=== PATIENT | female | born 1965 | race Caucasian/White ===

== ENCOUNTER 2016-04-12 06:41 | Outpatient (CLI) | payer OTHER ==
[2016-04-12 09:03] LABS: ALT (SGPT) 18 U/L (0-55); AST (SGOT) 19 U/L (5-34); Alkaline Phosphatase 63 U/L (40-150); Anion Gap 15 mmol/L (10-20); BUN (Urea Nitrogen) 15 mg/dL (9.8-20.1); Bilirubin, Total 1.1 mg/dL (0.2-1.2); Calc. Creatinine Clearance 0 mL/min (70-130); Calcium 9.8 mg/dL (7.8-10.44); Carbon Dioxide 28 mmol/L (22-29); Chloride 105 mmol/L (98-107); Estimated GFR-MDRD 80; LDL Cholesterol, Calculated 78 mg/dL; Protein, Total 7.3 g/dL (6.0-8.3)
[2016-04-12 09:07] LABS: #Basophils 0.1 thou/uL (0.0-0.2); #Eosinphils 0.1 thou/uL (0.0-0.7); #Lymphocytes 2.2 thou/uL (1.20-3.40); #Monocytes 0.5 thou/uL (0.11-0.59); #Neutrophils 3.2 thou/uL (1.40-6.50); %Basophils 0.9 % (0.0-1.0); %Eosinophils 1.9 % (0.0-10.0); %Monocytes 7.6 % (0.0-10.0); Hematocrit 38.4 % (36.0-47.0); Mean Platelet Volume 6.3 fL (7.4-10.4); Red Blood Cell (RBC) Count 4.15 mill/uL (4.20-5.40)
== END 2016-04-12 06:42 | disposition home or self-care (01) ==
LOC: BURLAB 06:41
PROVIDERS: ATTEND Family Medicine
DX: I10 Essential (primary) hypertension (principal); E78.00 Pure hypercholesterolemia, unspecified
CPT/HCPCS: 36415; 80053; 80061; 84443; 85025

== ENCOUNTER 2016-06-11 17:24 | Outpatient (CLI) | payer OTHER | END 2016-06-11 17:25 | disposition home or self-care (01) | LOC: BURLAB 17:24 | DX: Q50.1 Developmental ovarian cyst (principal) | CPT/HCPCS: 36415; 83520; 84403; 86304; 86336 ==